=== PATIENT | male | born 1995 | race Caucasian/White ===

== ENCOUNTER 2018-08-09 16:56 | Emergency (ER) | payer MEDICAID, OTHER ==
[~2018-08-09] VITALS: Ht 167.6 cm; Wt 95.5 kg
[~2018-08-09 16:56] MED LIST: BENZ1TAB10 PO; DIPH25 PO; DIVA500T52 PO; DOCU250C91 PO; QUET200T PO; SERT50TA12 PO
[2018-08-09] MEDS ORDERED: LORA1TAB3 PO (17:01)
[2018-08-09] MEDS ORDERED: SODIUM CHLORIDE 0.9% 1,000 ML IV ONE ×2 (17:02→17:05)
[2018-08-09] MEDS ORDERED: MethylPREDNISolone SOD SUCC 125 MG/2 ML VIAL ONE (17:05)
[2018-08-09] MEDS ORDERED: FAMOTIDINE 10 MG/ML 2 ML VIAL ONE (17:05)
[2018-08-09] MEDS ORDERED: EPINEPHrine 1:10,000 [1 MG/10 ML] SYRINGE ONE (17:05)
[2018-08-09] MEDS ORDERED: DiphenhydrAMINE HCL 50 MG/ML VIAL ONE (17:05)
[2018-08-09] MEDS ORDERED: EPINEPHrine 1:1,000 [1 MG/ML] AMP ONE (17:06)
[2018-08-09] MEDS ORDERED: DiphenhydrAMINE HCL 50 MG/ML VIAL IVP ONE (17:15)
[2018-08-09] MEDS ORDERED: FAMOTIDINE 10 MG/ML 2 ML VIAL IVP ONE (17:15)
[2018-08-09] MEDS ORDERED: EPINEPHrine 1:1,000 [1 MG/ML] AMP IM ONE (17:15)
[2018-08-09] MEDS ORDERED: MethylPREDNISolone SOD SUCC 125 MG/2 ML VIAL IVP ONE (17:15)
[2018-08-09 20:35] VITALS: BP 145/80
== END 2018-08-09 20:52 | disposition home or self-care (01) ==
LOC: EMS 16:57
DX: T78.40XA Allergy, unspecified, initial encounter (principal); F19.10 Other psychoactive substance abuse, uncomplicated; R06.02 Shortness of breath; R22.1 Localized swelling, mass and lump, neck; F19.90 Other psychoactive substance use, unspecified, uncomplicated; F41.9 Anxiety disorder, unspecified; F31.9 Bipolar disorder, unspecified; F11.90 Opioid use, unspecified, uncomplicated
CPT/HCPCS: 36415; 80164; 96372; 96374; 96375; 99291; J0171; J1200; J2930; J3490; J7030